=== PATIENT | female | born 1965 | race Caucasian/White ===

== ENCOUNTER 2020-04-06 08:11 | Observation (INO) | payer BC ==
[2020-03-30 10:48] LABS: BASOPHILS % (AUTO) 0.4 % (0-1); EOSINOPHILS # (AUTO) 0.1 X10'3 (0-0.9); EOSINOPHILS % (AUTO) 1.2 % (0-6); LYMPHOCYTES # (AUTO) 3.7 X10'3 (1.1-4.8); LYMPHOCYTES % (AUTO) 52.7 % (21-51); MEAN CORPUSCULAR HEMOGLOBIN 31.3 PG (27.0-31.0); MEAN CORPUSCULAR HGB CONC 34.1 g/dL (33.0-36.5); MEAN CORPUSCULAR VOLUME 91.8 FL (78-98); MEAN PLATELET VOLUME 7.1 FL (7.4-10.4); MONOCYTES # (AUTO) 0.3 X10'3 (0-0.9); MONOCYTES % (AUTO) 3.8 % (2-12); NEUTROPHILS % (AUTO) 41.9 % (42-75); PRE OP HEMATOCRIT 38.6 % (35.0-45.0); PRE OP HEMOGLOBIN 13.2 g/dL (12.0-16.0); PRE OP PLATELET COUNT 267 X10'3 (140-440); RED CELL DISTRIBUTION WIDTH 12.4 % (11.5-14.5)
[2020-03-30 11:01] LABS: ALBUMIN 4.2 G/DL (3.4-5.0); ALBUMIN/GLOBULIN RATIO 1.4 (1.1-1.5); ALKALINE PHOSPHATASE 57 IU/L (46-116); BLOOD UREA NITROGEN 7 MG/DL (7-18); BUN/CREATININE RATIO 9.6 (6.6-38.0); CALCIUM 8.8 MG/DL (8.5-10.1); CHLORIDE 103 MMOL/L (99-107); CREATININE 0.73 MG/DL (0.40-0.90); PRE OP ALT 25 U/L (30-65); PRE OP ANION GAP 5 (8-16); PRE OP AST 22 U/L (10-37); PRE OP BILIRUB, TOTAL 0.2 MG/DL (0.0-1.0); PRE OP GLUCOSE 92 MG/DL (70-104); PRE OP POTASSIUM 3.4 MMOL/L (3.4-5.1); PRE OP SODIUM 140 MMOL/L (135-145); TOTAL PROTEIN 7.3 G/DL (6.4-8.2); eGFR 82 ML/MIN
[2020-04-06] VITALS (17 sets, daily range): BP systolic 99–137; BP diastolic 52–92
[~2020-04-06] VITALS: Ht 170.2 cm; Wt 72.7 kg
[2020-04-06] MEDS: ceFOXitin sod/dextrose 2g/50ml 50 ML IV ONE ×2 (05:30→08:25)
[~2020-04-06 08:11] MED LIST: AMLO2.5T2 PO; ATOR40TA PO; BENA40TA73 PO; CLON-527 PO; EST1T PO; HCTZ25T PO; HYDR-4353 PO; OMEP20TA5 PO; famotidine 20mg tablet PO ONE; ringers solution, lacted 1,000 ML IV SCH
[2020-04-06] MEDS ORDERED: fentaNYL/PF 50MCG/1 ML 2ML syringe ONE ×2 (08:53→11:03)
[2020-04-06] MEDS ORDERED: neostigmine methylsulfate 1 MG/ML 10ml vial ONE (08:55)
[2020-04-06] MEDS ORDERED: glycopyrrolate 0.2mg/ml inj ONE (08:55)
[2020-04-06] MEDS ORDERED: ondansetron/PF 4mg/2ml inj ONE (08:55)
[2020-04-06] MEDS ORDERED: dexamethasone sod phosphate 4mg/ml inj. ONE (08:55)
[2020-04-06] MEDS ORDERED: rocuronium 10mg/ml inj IV ONE ×2 (08:55→11:25)
[2020-04-06] MEDS ORDERED: propofol inj 20 ML IV ONE (08:56)
[2020-04-06] MEDS ORDERED: LIDOcaine 2% (20mg/ml) 5ml vial ONE (08:56)
[2020-04-06 09:12] LABS: PRE OP PARTIAL THROMB. TIME 26 SECONDS (22-32)
[2020-04-06] MEDS ORDERED: BUPIVAcaine/PF 2.5 mg/ml (0.25%) 30ml vial ONE (09:18)
[2020-04-06 09:56] LABS: CLARITY,URINE SLIGHTLY CLOUDY (Clear); COLOR,URINE YELLOW (Yellow); GLUCOSE, URINE NEGATIVE (Neg); KETONES,URINE NEGATIVE (Neg); LEUKOCYTE ESTERASE ,URINE NEGATIVE (Neg); NITRITES, URINE NEGATIVE (Neg); OCCULT BLOOD,URINE NEGATIVE (Neg); PROTEIN,URINE NEGATIVE (Neg); UROBILINOGEN,URINE 0.2 E.U/dL (0.2-1.0)
[2020-04-06 10:02] LABS: UA COLLECTION TYPE NON-SPECIFIED
[2020-04-06 10:03] LABS: BACTERIA,URINE FEW /HPF (Neg); RBC,URINE 0-2 /HPF (0-2); SQUAMOUS EPITHELIAL CELL,UR MANY /LPF (FEW); WBC,URINE 0-4 /HPF (0-4)
[2020-04-06] MEDS ORDERED: sevoflurane 250ml liquid IH ONE (10:09)
[2020-04-06] MEDS ORDERED: labetalol 20mg/4ml (5mg/ml) syringe IV ONE (10:54)
[2020-04-06] MEDS ORDERED: ringers solution, lacted 1,000 ML IV SCH (11:01)
[2020-04-06] MEDS ORDERED: hydrALAZINE 20mg/ml inj. IV ONE (11:03)
[2020-04-06] MEDS ORDERED: labetalol 20mg/4ml (5mg/ml) syringe IV PRN (11:05)
[2020-04-06] MEDS ORDERED: ondansetron/PF 4mg/2ml inj IV PRN ×2 (11:05→12:55)
[2020-04-06] MEDS ORDERED: morphine 4 MG/ML inj SYRINge IV PRN (11:05)
[2020-04-06] MEDS ORDERED: enalaprilat dihydrate 2.5mg/2ml vial IV PRN (11:05)
[2020-04-06] MEDS ORDERED: morphine 2 MG/ML inj. syringe IV PRN (11:05)
[2020-04-06] MEDS ORDERED: HYDROmorphone inj. 0.5 MG/0.5 ML DISP.SYRIN IV PRN ×4 (11:05→13:10)
--- NOTE | 2020-04-06 12:35 | NUR ---
ADMITTED TO PACU FROM OR ACCOMPANIED BY ANESTHESIA. INTIAL PHYSICAL ASSESSMENT DONE AND RECORDED. REPORT RECEIVED FROM ANESTHESIA.
--- NOTE | 2020-04-06 12:35 | NUR ---
PACU DISCHARGE CRITERIA MET, REPORT GIVEN TO FLOOR. DENIES PAIN OR DISCOMFORT, TRANSFERRED TO ROOM IN STABLE GOOD CONDITION. Addendum: 04/06/20 at 1406 by Wilda Yang RN DISCHARGE TIME CORRECTION 1329
[2020-04-06] MEDS ORDERED: HYDROmorphone inj. 0.5 MG/0.5 ML DISP.SYRIN IV ONE (12:55)
[2020-04-06] MEDS ORDERED: HYDROcodone/acetaminophen 10/325mg tab PO PRN (12:55)
[2020-04-06] MEDS ORDERED: acetaminophen 1,000mg/100ml IV 100 ML IV ONE (13:10)
[2020-04-06] MEDS: ketorolac trometh. 30mg/ml inj. IV SCH ×2 (13:22→19:06)
[2020-04-06] MEDS: metoclopramide 5 mg/ml inj IV SCH ×2 (14:27→19:06)
[2020-04-06] MEDS: HYDROmorphone 1 mg/ml syringe IV PRN (14:34)
--- NOTE | 2020-04-06 15:25 | NUR ---
I tried to call Dr. Stout regarding medication reconciliation to order home meds, someone in the OR answered the cellphone. I left message to the staff to relay it to Dr. Stout.
[2020-04-06] MEDS ORDERED: AMLO2.5T2 PO (16:38)
[2020-04-06] MEDS ORDERED: clonazePAM 1mg tablet PO PRN (16:45)
[2020-04-06] MEDS: Potassium Cl inj 20 MEQ in ringers solution, lacted 1,000 ML IV SCH ×2 (17:09→20:56)
[2020-04-06] MEDS: ceFAZolin inj. 1,000 MG in dextrose 5%-water 50ml 50 ML IV SCH (17:31)
--- NOTE | 2020-04-06 18:03 | NUR ---
Patient stated she passed gas already. Encouraged patient to start ambulating tonight from room to the hallway.
--- NOTE | 2020-04-06 18:38 | NUR ---
Problems reprioritized. Patient report given, questions answered & plan of care reviewed with Bran NICHOLS.
[2020-04-06] MEDS ORDERED: atorvastatin 20mg tablet PO SCH (21:00)
[2020-04-07] VITALS: BP 122/63
[2020-04-07] MEDS: HYDROmorphone 1 mg/ml syringe IV PRN (00:12)
[2020-04-07] MEDS: ceFAZolin inj. 1,000 MG in dextrose 5%-water 50ml 50 ML IV SCH ×2 (00:13→08:00)
[2020-04-07] MEDS: metoclopramide 5 mg/ml inj IV SCH ×2 (02:01→08:08)
[2020-04-07] MEDS: ketorolac trometh. 30mg/ml inj. IV SCH ×2 (02:02→08:08)
[2020-04-07 04:10] LABS: BASOPHILS % (AUTO) 0.2 % (0-1); EOSINOPHILS % (AUTO) 0 % (0-6); HEMATOCRIT 34.8 % (35.0-45.0); LYMPHOCYTES # (AUTO) 1.2 X10'3 (1.1-4.8); LYMPHOCYTES % (AUTO) 11.1 % (21-51); MEAN CORPUSCULAR HEMOGLOBIN 31.8 PG (27.0-31.0); MEAN CORPUSCULAR HGB CONC 34.5 g/dL (33.0-36.5); MEAN CORPUSCULAR VOLUME 92.1 FL (78-98); MEAN PLATELET VOLUME 7.1 FL (7.4-10.4); MONOCYTES # (AUTO) 0.3 X10'3 (0-0.9); MONOCYTES % (AUTO) 2.7 % (2-12); NEUTROPHILS # (AUTO) 9.1 X10'3 (1.8-7.7); PLATELET COUNT 257 X10'3 (140-440); RED BLOOD COUNT 3.78 X10'6 (4.20-5.60); RED CELL DISTRIBUTION WIDTH 12.7 % (11.5-14.5); WHITE BLOOD COUNT 10.5 X10'3 (4.5-11.0)
[2020-04-07] MEDS: Potassium Cl inj 20 MEQ in ringers solution, lacted 1,000 ML IV SCH (05:16)
[2020-04-07 07:00] VITALS: BP 131/92
[2020-04-07] MEDS ORDERED: pantoprazole 40mg Tablet.DR PO SCH (07:30)
[2020-04-07] MEDS ORDERED: HYDROchlorothiazide 25mg tablet PO SCH (08:00)
[2020-04-07] MEDS ORDERED: lisinopril 20mg tablet PO SCH (08:00)
[2020-04-07] MEDS ORDERED: estradiol 1mg tablet PO SCH (08:00)
[2020-04-07] MEDS ORDERED: atorvastatin 20mg tablet PO SCH (08:00)
[2020-04-07] MEDS ORDERED: amLODIPine 2.5mg tablet PO SCH (08:00)
[2020-04-07 11:14] VITALS: BP 124/80
--- NOTE | 2020-04-07 12:35 | NUR ---
Reinforced discharge instructions for patient; patient understands she is to follow up with Dr. Stout in 1-2 weeks, to leave steri strips on her lap incision sites for 7-10 days. Pt states she knows she may take her band-aids off tomorrow and shower 48 hours after her surgery. Instructed pt to keep her 3 abdomen incision sites dry and not to take bath, sit in a hot tub or soak them in water. Pt has no new medications upon discharge. Instructed patient to resume all home medications as she would take them tonight normally. Pt has no further questions. Gave pt office number for Dr. Stout for her to call to make follow up appt.
== END 2020-04-07 12:20 | disposition home or self-care (01) ==
LOC: PAS 08:11 → SUR 3N 12:51
PROVIDERS: ADMIT Surgery; ATTEND Surgery
DX: N73.6 Female pelvic peritoneal adhesions (postinfective) (principal); Z20.828 Contact with and (suspected) exposure to other viral communicable diseases; F41.9 Anxiety disorder, unspecified; E11.9 Type 2 diabetes mellitus without complications; I10 Essential (primary) hypertension; M19.90 Unspecified osteoarthritis, unspecified site; Z87.891 Personal history of nicotine dependence; Z79.899 Other long term (current) drug therapy
CPT/HCPCS: 36415; 44180; 71045; 80053; 81001; 82948; 85025; 85610; 85730; 87635; 93005; 96361; 96365; 96366; 96375; 96376; G0378; J0131; J0360; J0690; J0694; J1100; J1170; J1885; J2001; J2405; J2704; J2710; J2765; J3010; J3480; J3490; J7060; J7120; S2900; A4215; A4314; A4618; A7000

== ENCOUNTER 2020-09-17 09:16 | Day surgery (SDC) | payer BC ==
[2020-09-11 11:52] LABS: BASOPHILS % (AUTO) 0.6 % (0-1); EOSINOPHILS # (AUTO) 0.1 X10'3 (0-0.9); EOSINOPHILS % (AUTO) 1.3 % (0-6); LYMPHOCYTES # (AUTO) 3.1 X10'3 (1.1-4.8); LYMPHOCYTES % (AUTO) 45.6 % (21-51); MEAN CORPUSCULAR HEMOGLOBIN 32.8 PG (27.0-31.0); MEAN CORPUSCULAR HGB CONC 34.5 g/dL (33.0-36.5); MEAN CORPUSCULAR VOLUME 95.1 FL (78-98); MEAN PLATELET VOLUME 7.2 FL (7.4-10.4); MONOCYTES # (AUTO) 0.3 X10'3 (0-0.9); MONOCYTES % (AUTO) 4.2 % (2-12); NEUTROPHILS # (AUTO) 3.3 X10'3 (1.8-7.7); NEUTROPHILS % (AUTO) 48.3 % (42-75); PRE OP HEMATOCRIT 39.2 % (35.0-45.0); PRE OP HEMOGLOBIN 13.5 g/dL (12.0-16.0); PRE OP PLATELET COUNT 254 X10'3 (140-440); RED BLOOD COUNT 4.12 X10'6 (4.20-5.60); RED CELL DISTRIBUTION WIDTH 12.8 % (11.5-14.5)
[2020-09-11 11:53] LABS: CLARITY,URINE SLIGHTLY CLOUDY (Clear); COLOR,URINE STRAW (Yellow); GLUCOSE, URINE NEGATIVE (Neg); KETONES,URINE NEGATIVE (Neg); LEUKOCYTE ESTERASE ,URINE NEGATIVE (Neg); OCCULT BLOOD,URINE NEGATIVE (Neg); PH,URINE 6.5 (4.8-8.0); PROTEIN,URINE NEGATIVE (Neg); UROBILINOGEN,URINE 0.2 E.U/dL (0.2-1.0)
[2020-09-11 12:04] LABS: PRE OP INR 1.1 INR; PRE OP PROTIME 11.1 SECONDS (9.0-12.0)
[2020-09-11 12:07] LABS: ALBUMIN 4.2 G/DL (3.4-5.0); ALBUMIN/GLOBULIN RATIO 1.3 (1.1-1.5); ALKALINE PHOSPHATASE 72 IU/L (46-116); BLOOD UREA NITROGEN 13 MG/DL (7-18); BUN/CREATININE RATIO 17.3 (6.6-38.0); CALCIUM 8.8 MG/DL (8.5-10.1); CHLORIDE 104 MMOL/L (99-107); CREATININE 0.75 MG/DL (0.40-0.90); PRE OP ALT 36 U/L (30-65); PRE OP ANION GAP 13 (8-16); PRE OP AST 42 U/L (10-37); PRE OP BILIRUB, TOTAL 0.4 MG/DL (0.0-1.0); PRE OP GLUCOSE 110 MG/DL (70-104); PRE OP POTASSIUM 3.4 MMOL/L (3.4-5.1); PRE OP SODIUM 144 MMOL/L (135-145); TOTAL CARBON DIOXIDE 26.8 MMOL/L (24-32); TOTAL PROTEIN 7.5 G/DL (6.4-8.2); eGFR 80 ML/MIN
[2020-09-11 12:10] LABS: UA COLLECTION TYPE CLN CATCH MIDSTREAM
[2020-09-11 12:11] LABS: NITRITES, URINE NEGATIVE (Neg)
[2020-09-11 12:12] LABS: BACTERIA,URINE FEW /HPF (Neg); MUCUS STRANDS NONE SEEN /LPF (Neg); RBC,URINE 0-2 /HPF (0-2); SQUAMOUS EPITHELIAL CELL,UR FEW /LPF (FEW)
[2020-09-11 12:13] LABS: WBC,URINE NONE SEEN /HPF (0-4)
[~2020-09-17] VITALS: Ht 170.2 cm; Wt 72.0 kg
[2020-09-17] VITALS (13 sets, daily range): BP systolic 144–165; BP diastolic 83–103
[~2020-09-17 09:16] MED LIST changes: +AMLO10TA13 PO; -AMLO2.5T2 PO; -HCTZ25T PO; +HYDR25TA5 PO; +ceFAZolin 2gm in dextrose, iso 50 ML IV ONE
[2020-09-17] MEDS ORDERED: HYDROcodone/acetaminophen 10/325mg tab PO ONE (12:35)
[2020-09-17] MEDS ORDERED: morphine 2 MG/ML inj. syringe IV PRN (13:20)
[2020-09-17] MEDS ORDERED: meperidine/PF 25mg/ml syringe IV PRN ×2 (13:20)
[2020-09-17] MEDS ORDERED: ringers solution, lacted 1,000 ML IV SCH (13:20)
[2020-09-17] MEDS ORDERED: morphine 4 MG/ML inj SYRINge IV PRN (13:20)
[2020-09-17] MEDS ORDERED: ondansetron/PF 4mg/2ml inj IV PRN (13:20)
[2020-09-17] MEDS ORDERED: proCHLORperazine 10 MG/2 ml inj IV PRN (13:20)
[2020-09-17] MEDS ORDERED: BUPIVAcaine/PF 2.5 mg/ml (0.25%) 30ml vial ONE (14:06)
[2020-09-17] MEDS ORDERED: midazolam 2 mg/2 ml injection ONE (14:19)
[2020-09-17] MEDS ORDERED: propofol inj 20 ML IV ONE (14:19)
[2020-09-17] MEDS ORDERED: rocuronium 10mg/ml inj IV ONE ×2 (14:19→15:27)
[2020-09-17] MEDS ORDERED: fentaNYL/PF 50MCG/1 ML 2ML syringe ONE ×2 (14:19→16:40)
[2020-09-17] MEDS ORDERED: ondansetron/PF 4mg/2ml inj ONE (14:19)
[2020-09-17] MEDS ORDERED: LIDOcaine 2% (20mg/ml) 5ml vial ONE (14:19)
[2020-09-17] MEDS ORDERED: neostigmine methylsulfate 1 MG/ML 10ml vial ONE (14:20)
[2020-09-17] MEDS ORDERED: sevoflurane 250ml liquid IH ONE (14:20)
[2020-09-17] MEDS ORDERED: dexamethasone sod phosphate 10mg/ml inj ONE (14:20)
[2020-09-17] MEDS ORDERED: labetalol 20mg/4ml (5mg/ml) syringe IV ONE (15:01)
[2020-09-17] MEDS ORDERED: glycopyrrolate 0.2mg/ml inj ONE (16:09)
--- NOTE | 2020-09-17 17:05 | NUR ---
Received from OR via [facility] , accompanied by Anesthesiologist DR ALMONTE and report given by Anesthesiologist. PATIENT WAKING UP, PAINFUL ABD-WILL MEDICATE, V/S WNL-BP ELEVATED, NEUROVASCULAR CHECKS INTACT, 20G PIV LUE-LR RUNNING 100/HR, SCDS ON, 4 BANDAIDS TO LAP SITES OF ABDOMEN WITH ABD BINDER OVER-CDI.
[2020-09-17] MEDS: meperidine/PF 25mg/ml syringe IV PRN ×2 (17:09→17:30)
[2020-09-17] MEDS ORDERED: ketorolac trometh. 30mg/ml inj. IV ONE (17:55)
[2020-09-17] MEDS ORDERED: acetaminophen 1,000mg/100ml IV 100 ML IV ONE (18:25)
--- NOTE | 2020-09-17 19:15 | NUR ---
PATIENT A&OX4, PAINFUL BUT WANTING TO GO HOME,PT HAS NORCO AT HOME ALREADY, ABLE TO AMBULATE TO BATHROOM TO VOID W/O DIFFICULTY, V/S WNL-BP ELEVATED WILL TAKE HOME BP MEDS ONCE AT HOME, NEUROVASCULAR CHECKS INTACT, 20G PIV LUE D/C, SCD OFF, 4 BANDAIDS TO LAP SITES OF ABDOMEN CDI WITH ABD BINDER OVER THEM. I HAVE REVIEWED D/C INSTRUCTIONS WITH PATIENT WHO HAS VERBALIZED UNDERSTANDING. PATIENT WAS D/C HOME WITH ALL BELONGINGS AND FAMILY GAVE TRANSPORT HOME.
== END 2020-09-17 19:15 | disposition home or self-care (01) ==
LOC: PAS 09:16
PROVIDERS: ATTEND Surgery
DX: K43.2 Incisional hernia without obstruction or gangrene (principal); N73.6 Female pelvic peritoneal adhesions (postinfective); I11.9 Hypertensive heart disease without heart failure; D64.9 Anemia, unspecified; M19.90 Unspecified osteoarthritis, unspecified site; F41.9 Anxiety disorder, unspecified; G89.29 Other chronic pain; E66.9 Obesity, unspecified; Z68.25 Body mass index [BMI] 25.0-25.9, adult; Z20.822 Contact with and (suspected) exposure to COVID-19; Z87.891 Personal history of nicotine dependence; Z79.899 Other long term (current) drug therapy; Z79.01 Long term (current) use of anticoagulants; Z90.710 Acquired absence of both cervix and uterus; Z98.890 Other specified postprocedural states; Z91.09 Other allergy status, other than to drugs and biological substances; Z90.49 Acquired absence of other specified parts of digestive tract; Z82.49 Family history of ischemic heart disease and other diseases of the circulatory system; Z81.8 Family history of other mental and behavioral disorders; Z83.3 Family history of diabetes mellitus
CPT/HCPCS: 36415; 49654; 80053; 81001; 82948; 85025; 85610; 85730; 87635; C1758; C1781; J0131; J1100; J1885; J2001; J2175; J2250; J2405; J2704; J2710; J3010; J3490; A4215; A4618; J7120